=== PATIENT | male | born 2005 | race Caucasian/White ===

== ENCOUNTER 2025-01-03 23:42 | Emergency (ER) | payer OTHER, SELFPAY ==
[2025-01-03 23:43] VITALS: BP 145/78; PULSE 81; RESP 16; TEMP 36.4; O2SAT 99; BMI 25.7
--- NOTE | 2025-01-03 23:57 | ED.GENADULT ---
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 He was setting a pole today when he twisted his ankle on the left and now has pain over the lateral aspect of the ankle. He has no bruising but does have mild swelling. He can bear weight with some difficulty. He has had no knee or foot pain. Patient has no pre-existing history of problems with his ankle and otherwise has been in his usual state of health. He has no skin breakdown no other injuries. Related Data Home Medications ?Medication ?Instructions ?Recorded ?Confirmed No Known Home Medications 01/03/25 01/03/25 Allergies Allergy/AdvReac Type Severity Reaction Status Date / Time No Known Drug Allergies Allergy Verified 01/03/25 23:48 Review of Systems Status of ROS: Reports: 10 or more systems reviewed and unremarkable except as noted in History and below PFSH PFSH Social History Smoking Status: Never smoker Do you use any of these nicotine containing products: None How often do you have a drink containing alcohol: never AUDIT-C Alcohol total score: 0 Non-prescribed substance use: denies use Exam Narrative: Exam Narrative: EXAM GENERAL: Patient appears comfortable and well. EYES: No scleral icterus. LYMPH: No supraclavicular or cervical lymphadenopathy. SKIN: Visible skin seen during exam normal or with benign process only. EXT: Examination left ankle shows swelling over the lateral aspect no other palpable abnormalities. No signs of skin breakdown or ecchymoses. HEART: Regular rate and rhythm with no murmurs, rubs, or gallops. LUNGS: Clear to auscultation bilaterally with no crackles or wheezes. ABD: Soft, non tender, non distended. PSYCH: Good eye contact, speech is not pressured. Const: Vital Signs, click to edit/add: Vital Signs - 24 hr 01/03/25 23:43 Temperature 97.6 F Pulse Rate [Pulse Oximeter] 81 Respiratory Rate 16 Blood Pressure [Ri ght Upper Arm] 145/78 H Pulse Oximetry 99 Oxygen Delivery Me thod Room Air Course Course ED Course: Patient seen and examined. X-ray of the left ankle shows an oblique fracture of the distal fibula. Vital Signs Vital signs: Initial Vital Signs Temperature 97.6 F 01/03/25 23:43 Temperature Source Temporal Artery Scan 01/03/25 23:43 Pulse Rate 81 01/03/25 23:43 Respiratory Rate 16 01/03/25 23:43 Blood Pressure 145/78 H 01/03/25 23:43 Blood Pressure Mean 100 01/03/25 23:43 Pulse Oximetry 99 01/03/25 23:43 Oxygen Delivery Method Room Air 01/03/25 23:43 Vital Signs Temperature 97.6 F 01/03/25 23:43 Pulse Rate 81 01/03/25 23:43 Respiratory Rate 16 01/03/25 23:43 Blood Pressure 145/78 H 01/03/25 23:43 Pulse Oximetry 99 01/03/25 23:43 Oxygen Delivery Method Room Air 01/03/25 23:43 Temperature 97.6 F 01/03/25 23:43 Pulse Rate 81 01/03/25 23:43 Respiratory Rate 16 01/03/25 23:43 Blood Pressure 145/78 H 01/03/25 23:43 Pulse Oximetry 99 01/03/25 23:43 Oxygen Delivery Method Room Air 01/03/25 23:43 Medical Decision Making MDM Narrative Medical decision making narrative: Patient presents with a distal fibular fracture. We did placement cam walker and recommended weight-bearing as tolerated in the walker. We recommended light duty and rotation of Tylenol Motrin. He can ice as needed and will follow-up with orthopedics he in approximately 3-5 days. Discharge Plan Discharge Clinical Impression: Ankle fracture Patient Disposition: Home, Self-Care Condition: Stable Instructions: Ankle Fracture (ED) Additional Instructions: Cam walker as directed Ice Tylenol Motrin Follow-up with orthopedics this coming week. 3-5 days. Activity Level: Activity as Tolerated Discharge Diet: Regular Prescriptions: No Action No Known Home Medications Stand Alone Forms: [employer] Info Instructions
--- OUTSIDE RECORDS SUMMARY | 2025-01-09 08:38 | XMS_ITS | Clinical Summary ---
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centive [facility],which states Providers who transition their patient to another setting of careor provider of care or refers their patient to another provider of care shouldprovide summary care record for each transition of care or referral. [employer] Allergies No known active allergies Immunizations Immunization Administration Dates Next Due 9vHPV (Gardasil 9) 10/03/2018,03/30/2018 [id number] (Pediarix) 02/18/2005,2004,1 12/27/2003 DTaP-IPV (Kinrix, 4-6 yrs) 08/22/2009 DTaP/Hib 12/06/2005 Flu Vac (3+ yrs) 08/20/2014, 7,09/17/2005,2004 Flu Vac Preserv Free (3+yrs) 08/15/2012, 08/27/2011,08/26/2008,2005 HepA Ped/Adol (1-18 yrs) 03/30/2018 HepB Ped/Adol (0-18 yrs) 2004 HepB, Unspecified Formulation 2004 Hib (HbOC) 02/18/2005,2004,2004 Influenza ([place] Only) (Flul aval Quad 0.5, 3+ yrs) 08/21/2019,08/22/2018,08/18/2015 Influenza, Unspecified Formulation 08/09,08/15/2012,08/27/2011,2007,10/09/2007,2006,09/17/2005,1 MCV4 (Menactra) 04/09/2022,02/16/2017 MMR 08/22/2009,08/20/2005 Pneumococcal 7, PED 12/06/2005, 5,2004,2003 Tdap 02/16/2017 Varicella 08/22/2009,08/20/2005 Social History Tobacco Use Types Packs/Day Years Used Date Smoking Tobacco: Never Assessed Sex and Gender Information Value Date Recorded Sex Assigned at Not on file Legal Sex Male 10:44 AM CDT Gender Identity Not on file Sexual Orientation Not on file Last Filed Vital Signs Vital Sign Reading Time Taken Comments Blood Pressure - - Pulse - - Temperature 36.1 C (97 F) 09/17/2022 8:22 AM CUT OFF SAWYER Respiratory Rate - - Oxygen Saturation - - Inhaled Oxygen Concentration - - Weight 79.4 kg (175 lb) 09/17/2022 8:22 AM CUT OFF [facility]WYER Height 175.3 cm (5' 9) 09/17/2022 8:22 AM CUT OFF [facility]WYER Body Mass Index 25.84 09/17/2022 8:22 AM CUT OFF SAWYER Plan of Treatment Health Maintenance Due Date Last Done Comments Hep C Screening (Preventive Services) 2004 MenB Immunization Discussion 2004 HepA (2 of 2 - 2-dose series) 09/30/2018 03/30/2018 HIV Screening (Preventive Services) 2020 Adult Preventive Visit 2022 COVID-19 Vaccine ( season) 2024 Influenza (#1) 2024 08/21/2019, 08/07, 08/18/2015, Additional history exists DTaP/Tdap/Td (7 - Tdap) 02/16/2027 02/17/20 17, 08/22/2009, 12/06/2005, Additional history exists Zoster/Shingles (1 of 2) 2054 HepB Completed 02/18/2005, 12/08, 2004, Additional history exists Hib Completed 12/06/2005, 02/05, 2004, Additional history exists Pneumococcal Aged Out 12/06/2005, 02/05, 2004, Additional history exists No longer eligible based on patient's age to complete this topic IPV (Polio) Completed 08/22/2009, 02/05, 2004, Additional history exists Varicella Completed 08/22/2009, 08/20/2005 HPV Vaccine Completed 10/03/2018, 03/30/2018 MCV4 Completed 04/09/2022, 02/16/2017 Insurance SELF INSURED SELF INSURED
== END 2025-01-04 00:26 | disposition home or self-care (01) ==
LOC: ED 01-09 08:37
PROVIDERS: Emergency Provider Internal Medicine
DX: S82.832A Other fracture of upper and lower end of left fibula, initial encounter for closed fracture (principal); X58.XXXA Exposure to other specified factors, initial encounter; Y93.89 Activity, other specified; Y92.89 Other specified places as the place of occurrence of the external cause; Y99.0 Civilian activity done for income or pay
CPT/HCPCS: 73610; 99283